=== PATIENT | male | born 1980 | race Caucasian/White ===

== ENCOUNTER 2018-01-14 14:03 | Emergency (ER) | payer OTHER ==
[2018-01-14 15:16] LABS: AUTOMATED NEUTROPHIL # 7.5 TH/MM3 (1.8-7.7); BASOPHIL # 0.1 TH/MM3 (0-0.2); BASOPHIL % 0.6 % (0.0-2.0); EOSINOPHIL # 0.2 TH/MM3 (0-0.4); EOSINOPHIL % 1.8 % (0.0-4.0); HEMATOCRIT 45.7 % (39.0-51.0); HEMOGLOBIN 16.4 GM/DL (13.0-17.0); LYMPHOCYTE # 3.5 TH/MM3 (1.0-4.8); MEAN CELL VOLUME 89.3 FL (80.0-100.0); MEAN CORPUSCULAR HEMOGLOBIN 32.1 PG (27.0-34.0); MEAN CORPUSCULAR HGB CONC 35.9 % (32.0-36.0); MEAN PLATELET VOLUME 7.9 FL (7.0-11.0); MONO % 7.2 % (0.0-8.0); MONOCYTE # 0.9 TH/MM3 (0-0.9); NEUT % 61.4 % (16.0-70.0); PLATELET COUNT 267 TH/MM3 (150-450); RED BLOOD COUNT 5.12 MIL/MM3 (4.50-5.90); RED CELL DISTRIBUTION WIDTH 12.4 % (11.6-17.2); WHITE BLOOD COUNT 12.2 TH/MM3 (4.0-11.0)
[2018-01-14 15:17] LABS: HEMO FLAGS DIFF FINAL
[2018-01-14 15:21] LABS: BLOOD, URINE LARGE (NEG); GLUCOSE,URINE NEG (NEG); KETONE, URINE TRACE mg/dL (NEG); NITRITE,URINE NEG (NEG); URINE LEUKOCYTE ESTERASE TRACE (NEG)
[2018-01-14 15:26] LABS: CHLORIDE 107 MEQ/L (98-107); POTASSIUM 4.1 MEQ/L (3.5-5.1); SODIUM (NA) 138 MEQ/L (136-145)
[2018-01-14 15:27] LABS: BILIRUBIN, URINE NEG (NEG); URINE COLOR BROWN (YELLW/STRAW)
[2018-01-14 15:29] LABS: MUCUS URINE MOD /lpf (OCC); RBC, URINE 100-200 /hpf (0-3)
[2018-01-14 15:30] LABS: CALCIUM 9.1 MG/DL (8.5-10.1); CALCIUM OXALATE CRYSTALS,URINE OCC /hpf; COMMENT (UR) CULT NOT INDICATED; CULTURE IF INDICATED CULT NOT INDICATED
[2018-01-14 15:31] LABS: ALBUMIN 4.1 GM/DL (3.4-5.0); ANION GAP 6 MEQ/L (5-15); BICARBONATE 25.4 MEQ/L (21.0-32.0); BLOOD UREA NITROGEN 13 MG/DL (7-18); GLUCOSE,RANDOM 88 MG/DL (74-106)
[2018-01-14 15:33] LABS: APTT (PATIENT) 28.2 SEC (24.3-30.1); INTERNATIONAL NORMALIZED RATIO 1.1 RATIO; PROTHROMBIN TIME - PATIENT 10.7 SEC (9.8-11.6)
[2018-01-14 15:34] LABS: ALT (GPT) 53 U/L (12-78); AST (GOT) 29 U/L (15-37); CREATININE 0.89 MG/DL (0.60-1.30); GLOMERULAR FILTRATION RATE 97 ML/MIN (>89)
[2018-01-14 15:35] LABS: TOTAL BILIRUBIN ADULT 0.5 MG/DL (0.2-1.0)
[2018-01-14 15:36] LABS: TOTAL PROTEIN 8.2 GM/DL (6.4-8.2)
[2018-01-14 15:37] LABS: ALKALINE PHOSPHATASE 96 U/L (45-117)
[2018-01-14] MEDS: ONDANSETRON HCL 4 MG/2 ML VIAL IVP (16:29)
[2018-01-14] MEDS: MORPHINE SULFATE 4 MG/ML INJ IV PUSH (16:30)
== END 2018-01-14 17:21 | disposition home or self-care (01) ==
LOC: PHED 14:03
DX: N20.0 Calculus of kidney (principal); R31.9 Hematuria, unspecified; F17.200 Nicotine dependence, unspecified, uncomplicated; Z87.442 Personal history of urinary calculi; Z88.0 Allergy status to penicillin
CPT/HCPCS: 74176; 80053; 81001; 85025; 85610; 85730; 96374; 96375; 99284-25